=== PATIENT | male | born 1945 | race Caucasian/White ===

== ENCOUNTER 2024-05-22 08:56 | Outpatient (OUT) | payer MEDICARE, SELFPAY ==
--- NOTE | 2024-05-22 09:07 | ECG_ITS ---
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
--- NOTE | 2024-05-22 10:01 | PM.PRESUREVA ---
History of Present Illness History of Present Illness Chief complaint: LEFT INGUINAL HERNIA RPR Narrative: Patient presents for preadmission testing. The patient states he has an ongoing left inguinal hernia which he noticed an increase in frequency of bulging about 3 months ago. The patient states it does reduce on its own when he lays flat and he is not currently having any pain, bowel changes, nausea, vomiting, fever, or any other complaints. He previously had a repair of a right sided inguinal hernia. Review of Systems ROS Narrative REVIEW OF SYSTEMS: Negative except as stated in HPI, ten or more systems reviewed. Constitutional: No fever, chills, weakness ENT: No sore throat or epistaxis Cardiovascular: No edema, chest pain, palpitations, or activity intolerance Respiratory: No shortness of breath, cough, or wheezing Musculoskeletal: No joint pain or swelling Genitourinary: No dysuria or hematuria Neurological: No numbness, tingling, weakness, or headache Psychiatric: No mood changes PFSH PFSH Medical History (Updated 05/22/24 @ 09:28 by Ondina Bravo NP) Kidney stones ?N20.0 - Calculus of kidney (ICD-10) Heart murmur ?R01.1 - Cardiac murmur, unspecified (ICD-10) Vitamin D deficiency ?E55.9 - Vitamin D deficiency, unspecified (ICD-10) Mood disorder ?F39 - Unspecified mood [affective] disorder (ICD-10) Hypercholesterolemia ?E78.00 - Pure hypercholesterolemia, unspecified (ICD-10) Hyperlipidemia ?E78.5 - Hyperlipidemia, unspecified (ICD-10) Erectile dysfunction ?N52.9 - Male erectile dysfunction, unspecified (ICD-10) Diverticulosis ?K57.90 - Diverticulosis of intestine, part unspecified, without perforation or abscess without bleeding (ICD-10) GERD (gastroesophageal reflux disease) ?K21.9 - Gastro-esophageal reflux disease without esophagitis (ICD-10) BPH (benign prostatic hyperplasia) ?N40.0 - Benign prostatic hyperplasia without lower urinary tract symptoms (ICD-10) Aortic stenosis ?I35.0 - Nonrheumatic aortic (valve) stenosis (ICD-10) Allergic rhinitis ?J30.9 - Allergic rhinitis, unspecified (ICD-10) Left inguinal hernia ?K40.90 - Unilateral inguinal hernia, without obstruction or gangrene, not specified as recurrent (ICD-10) Surgical History (Updated 05/21/24 @ 13:55 by Ondina Bravo NP) H/O right inguinal hernia repair ?Z98.890 - Other specified postprocedural states (ICD-10) ?Z87.19 - Personal history of other diseases of the digestive system (ICD-10) History of esophagogastroduodenoscopy (EGD) ?Z98.890 - Other specified postprocedural states (ICD-10) H/O colonoscopy ?Z98.890 - Other specified postprocedural states (ICD-10) Family History (Updated 05/22/24 @ 09:28 by Ondina Bravo NP) Other Cancer Family history of breast cancer Family history of myocardial infarction Social History (Updated 05/22/24 @ 09:22 by Ondina Bravo NP) Within the past year, how often did you have a drink containing alcohol: 2-3 times a week Smoking status: Former smoker Non-prescribed substance use: denies use Previous occupational history: Retired [employer], [employer] Highest level of school completed/degree received: high school graduate Meds Home Medications and Allergies Home Medications ?Medication ?Instructions ?Recorded ?Confirmed ?Type alfuzosin 10 mg tablet,extended 10 mg PO DAILY 05/22/24 05/22/24 History release 24 hr ascorbic acid (vitamin C) 1,000 mg 1 g PO DAILY 05/22/24 05/22/24 History capsule aspirin 81 mg tablet,delayed 81 mg PO DAILY 05/22/24 05/22/24 History release (Adult Aspirin Regimen) atorvastatin 20 mg tablet 20 mg PO DAILY 05/22/24 05/22/24 History cholecalciferol (vitamin D3) 25 1,000 unit PO DAILY 05/22/24 05/22/24 History mcg (1,000 unit) capsule cimetidine 400 mg tablet 400 mg PO Q12H 05/22/24 05/22/24 History cyanocobalamin (vitamin B-12) 1,000 mcg PO DAILY 05/22/24 05/22/24 History 1,000 mcg capsule fexofenadine 180 mg tablet 180 mg PO DAILY 05/22/24 05/22/24 History multivitamin-ferrous 1 tab PO DAILY 05/22/24 05/22/24 History fumarate-folic acid 18 mg-400 mcg tablet (Centrum Complete) omeprazole 20 mg capsule,delayed 20 mg PO DAILY 05/22/24 05/22/24 History release tadalafil 20 mg tablet 20 mg PO DAILY PRN sexual activity 05/22/24 05/22/24 History tamsulosin 0.4 mg capsule (Flomax) 0.4 mg PO DAILY 05/22/24 05/22/24 History zinc gluconate 50 mg tablet 50 mg PO DAILY 05/22/24 05/22/24 History Allergies Allergy/AdvReac Type Severity Reaction Status Date / Time No Known Drug Allergies Allergy Verified 05/22/24 09:19 Exam Narrative Exam Narrative: Constitutional: Awake, alert, comfortable, well-appearing, nontoxic, interactive, vital signs as charted Head: Normocephalic, atraumatic Neck: Supple, normal appearance, normal range of motion, no meningeal signs, no lymphadenopathy Respiratory: No respiratory distress, breath sounds clear Cardiovascular: Regular rate and rhythm, strong and regular heart tones Abdomen: Nontender, normal bowel sounds, soft, no CVA tenderness, left inguinal hernia nontender Musculoskeletal: Normal gait, no swelling or edema Skin: No rashes or induration, no lesions, only visible skin inspected Neuro: No neurological deficits, normal sensation Psychiatric: Oriented ?3, normal affect Assessment and Plan Assessment and Plan (1) Left inguinal hernia: Plan Left inguinal hernia repair with mesh scheduled with Dr. Senior June 05, 2024.
== END 2024-05-22 08:57 | disposition home or self-care (01) ==
LOC: PST 09:04
PROVIDERS: PCP Internal Medicine; Visit Provider Surgery
DX: Z01.810 Encounter for preprocedural cardiovascular examination (principal); Z01.818 Encounter for other preprocedural examination; K40.90 Unilateral inguinal hernia, without obstruction or gangrene, not specified as recurrent
CPT/HCPCS: 93005; G0463

== ENCOUNTER 2024-07-02 14:12 | Outpatient (OUT) | payer MEDICARE, SELFPAY | END 2024-07-02 14:13 | disposition home or self-care (01) | LOC: PST 14:12 | PROVIDERS: PCP Internal Medicine; Visit Provider Surgery | DX: Z01.818 Encounter for other preprocedural examination (principal); K40.90 Unilateral inguinal hernia, without obstruction or gangrene, not specified as recurrent ==

== ENCOUNTER 2024-07-10 08:16 | Day surgery (SDC) | payer OTHER, SELFPAY ==
[2024-05-22 09:43] VITALS: BP 148/87; PULSE 69; TEMP 36.2; O2SAT 99; BMI 22.8
[2024-07-10] VITALS (10 sets, daily range): BP systolic 118–155; BP diastolic 70–92; PULSE 67–86; TEMP 36.6; O2SAT 89–100; BMI 21.3
--- NOTE | 2024-07-10 | OP_ITS ---
OPERATION DATE: 07/10/2024 PREOPERATIVE DIAGNOSIS: Left inguinal hernia. POSTOPERATIVE DIAGNOSIS: Indirect left inguinal hernia and cord lipoma. PROCEDURE: Left inguinal herniorrhaphy with Bard mesh patch insertion. SURGEON: Sylvester Senior M.D. ANESTHESIA: General with laryngeal mask airway as well as left sided TAP block. ESTIMATED BLOOD LOSS: Less than 10 mL. INDICATIONS AND CONSENT: Patient is a 78-year-old male with history of enlarging symptomatic left inguinal hernia. Indications, risks, benefits, alternatives of proceeding with herniorrhaphy with mesh insertion were explained extensively to the patient, including the risks of bleeding, infection, scarring, pain, recurrence, nerve injury, testicular injury, blood clot, pulmonary embolus, heart attack, anesthetic complications, need for further surgery or mesh removal. All of his questions were answered. Informed consent was obtained. PROCEDURE: Patient brought to the operating room, placed in the supine position. General anesthesia was induced. A left sided TAP block was then performed. Patient was prepped and draped in the usual sterile fashion. A left groin incision was made with the scalpel blade and carried down through subcutaneous tissue using sharp dissection as well as electrocautery. Anastasiya?s fascia was divided. The external oblique was opened along the direction of its fibers, down through the external inguinal ring. It was noted to be attenuated. Cord structures were mobilized and retracted with a [place] drain. There was noted to be an indirect sac as well as a cord lipoma. These were carefully dissected free, up to the internal ring. Cord lipoma was excised. The base was ligated with the 3-0 Vicryl suture. Hernia sac was opened. It was noted to be empty. High ligation was then performed with 3-0 Vicryl suture. It was then excised and sent off to Pathology. The wound was irrigated. There was no evidence of direct inguinal hernia. The Bard polypropylene mesh patch was then placed in the floor of the inguinal canal. Arms were placed around the cord structures. It was then secured circumferentially using interrupted 3-0 Vicryl sutures. Care was taken to avoid undo tension on the cord structures. Wound was irrigated with antibiotic saline. There was good hemostasis. The external oblique was closed with a running 3-0 Vicryl suture. The remaining Exparel solution was injected into the subcutaneous tissue. External oblique was closed with running 3-0 Vicryl suture. Anastasiya?s fascia was re-approximated with interrupted 3-0 Monocryl suture. The skin was then closed with a running 4-0 subcuticular Monocryl suture and skin glue. Sterile pressure dressing was applied. Sponge and needle counts were correct x3 per nursing personnel. Patient tolerated procedure well, was sent to recovery room in good condition. CC: Suraj Ordonez D.O. BERE
--- OUTSIDE RECORDS SUMMARY | 2024-07-10 08:22 | XMS_ITS | CCD ---
Author Organization [facility] Care Team Providers Care Preconstruction Manager Name Role Phone GADIEL SALAS V Admitting Unavailable GADIEL SALAS V Attending Unavailable GADIEL SALAS V Consulting Unavailable DANNY RAMOS Admitting Unavailable DANNY RAMOS Attending Unavailable DANNY RAMOS Primary Care Unavailable DANNY RAMOS Consulting Unavailable MARILEE CETNENO Consulting Unavailable DANNY RAMOS Primary Care Physician Danny Ramos DO Primary Care Provider [phone] DANNY RAMOS Attending Unavailable DANNY RAMOS Referring Unavailable DANNY RAMOS Primary Care Unavailable DANNY RAMOS Admitting Unavailable DANNY RAMOS Attending Unavailable DANNY RAMOS Primary Care Unavailable Emilie Fernandez Attending Provider DO Danny Ramos Primary Care Provider Emilie Fernandez Attending Unavailable Emilie Fernandez Admitting Unavailable Danny Ramos Primary Care Unavailable Raoul TRACY Attending Unavailable Sylvester FRAIRE Attending Unavailable Raoul TRACY Attending Unavailable DANNY RAMOS Attending Unavailable DANNY RAMOS Referring Unavailable DANNY RAMOS Primary Care Unavailable DANNY RAMOS Attending Unavailable DANNY RAMOS Referring Unavailable DANNY RAMOS Primary Care Unavailable DANNY RAMOS Attending Unavailable DANNY RAMOS Referring Unavailable DANNY RAMOS Primary Care Unavailable DANNY RAMOS Attending Unavailable DANNY RAMOS Referring Unavailable DANNY RAMOS Primary Care Unavailable Allergies Allergy Classification Reported Allergen(s) Allergy Type Date of Onset Reaction(s) Facility (1 source) No Known Medication Allergies; Translations: [No Known Medication Allergies] Propensity to adverse reactions (disorder) [facility] Repository Medications Current Medications Medication Drug Class(es) Dates Sig (Normalized) Sig (Original) 24 hr alfuzosin hydrochloride 10 mg extended release oral tablet (3 sources) alpha-Adrenergic Kris Start: 08-16-2023 take 1 tablet by mouth once daily alfuzosin 10 mg ER Tab 10 mg = 1 tab(s), Oral, Daily, # 30 tab(s), Refills(s) 11, Pharmacy: [id number], 177, cm, 08/16/23 14:18:00 EST, Height/Length Dosing, 72, kg, 08/16/23 14:18:00 EST, Weight Dosing Start Date: 08/16/23 Status: Ordered Start: 08-16-2023 take 1 tablet by alexis th every twenty-four hours alfuzosin (UROXATRAL) 10 mg 24 hr tablet Take 1 tablet (10 mg total) by mouth. 08/16/2023 Active aspirin 81 mg delayed release oral tablet (1 source) Platelet Aggregation Inhibitor, Nonsteroidal Anti-inflammatory Drug Start: 04-11-2024 take 1 tablet by mouth once daily aspirin 81 mg Oral EC Tab 81 mg = 1 tab(s), Oral, Daily, Refills(s) 0 Start Date: 04/11/24 Status: Ordered atorvastatin 20 mg oral tablet (5 sources) HMG-CoA Reductase Inhibitor Start: 05-20-2021 take 1 tablet by mouth once daily atorvastatin 20 mg Tab 20 mg = 1 tab(s), Oral, Daily, Refills(s) 0 Start Date: 04/24/24 Status: Ordered cimetidine 400 mg oral tablet (1 source) Histamine-2 Receptor Antagonist Start: 05-02-2024 take 1 tablet by mouth in the morning, then take 1 tablet by mouth at bedtime cimetidine (TAGAMET) 400 mg tablet Indications: Contact dermatitis, unspecified contact dermatitis type, unspecified trigger Take 1 tablet (400 mg total) by mouth in the morning and 1 tablet (400 mg total) before bedtime. 30 tablet 05/02/2024 Active fexofenadine hydrochloride 180 mg oral tablet (5 sources) Histamine-1 Receptor Antagonist Start: 05-20-2021 take 1 tablet by mouth once daily fexofenadine 180 mg Tab 180 mg = 1 tab(s), Oral, Daily, Refills(s) 0 Start Date: 05/20/21 Status: Ordered Multi-Day Plus Minerals oral tablet (3 sources) Start: 05-20-2021 take 1 tablet by mouth once daily Multi-Day Plus Minerals oral tablet 1 tab(s), Oral, Daily, Refill(s) 0 Start Date: 05/20/21 Status: Ordered multivitamin with minerals (DAILY MULTIVITAMIN-MINERA LS) tablet (2 sources) take 1 tablet by mouth once daily in the morning multivitamin with minerals (DAILY MULTIVITAMIN-MINE RALS) tablet Take 1 tablet by mouth in the morning. Active take 1 tablet by alexis once daily in the morning multivitamin with minerals (DAILY MULTIVITAMIN-MINERALS) tablet Take 1 tablet by mouth in the morning. 0 Active omeprazole 20 mg delayed release oral capsule (5 sources) Proton Pump Inhibitor Start: 05-12-2023 take 1 capsule by mouth every other day omeprazole (PriLOSEC) 20 mg capsule Take 1 capsule (20 mg total) by mouth every other day. 05/12/2023 Active Start: 05-20-2021 take 1 capsule by mo [facility] once daily omeprazole 20 mg Cap-DR 20 mg = 1 cap(s), Oral, Daily, # 30 cap(s), Refills(s) 0 Start Date: 05/20/21 Status: Ordered polyethylene glycol 3350 85599 mg powder for oral solution (1 source) Osmotic Laxative Start: 01-03-2024 polyethylene glycol (GLYCOLAX) 17 gram/dose powder Indications: Diverticulosis large intestine w/o perforation or abscess w/o bleeding Take 17 g by mouth in the morning. 01/03/2024 Active predniSONE 20 mg oral tablet (1 source) Start: 05-02-2024 End: 05-07-2024 take 1 tablet by mouth in the morning predniSONE (DELTASONE) 20 mg tablet Indications: Contact dermatitis, unspecified contact dermatitis type, unspecified trigger Take 1 tablet (20 mg total) by mouth in the morning for 5 days. 5 tablet 05/02/2024 05/07/2024 Active psyllium 400 mg oral capsule (1 source) Start: 01-03-2024 psyllium husk (MetamuciL) 0.4 gram capsule Indications: Diverticulosis large intestine w/o perforation or abscess w/o bleeding Take 1 capsule (0.4 g total) by mouth in the morning. 01/03/2024 Active tadalafil 20 mg oral tablet (3 sources) Phosphodiesterase 5 Inhibitor Start: 04-11-2024 take 1 tablet by mouth once daily as needed tadalafil 20 mg Tab 20 mg = 1 tab(s), Oral, Daily, PRN as needed, Refills(s) 0 Start Date: 04/11/24 Status: Ordered take 1 tablet by alexis th once daily as needed tadalafiL (CIALIS) 10 MG tablet Take 1 tablet (10 mg total) by mouth daily as needed for erectile dysfunction. Active tamsulosin hydrochloride 0.4 mg oral capsule (1 source) alpha-Adrenergic Kris Start: 04-24-2024 take 1 capsule by mouth once daily tamsulosin 0.4 mg Cap 0.4 mg = 1 cap(s), Oral, Daily, Refills(s) 0 Start Date: 04/24/24 Status: Ordered vitamin b12 0.1 mg oral tablet (2 sources) Vitamin B12 take 1 tablet by mouth in the morning cyanocobalamin (VITAMIN B-12) 100 MCG tablet Take 1 tablet (100 mcg total) by mouth in the morning. Active Vitamin B12 100 mcg oral tablet (3 sources) Start: 05-20-2021 take 1 tablet by mouth once daily Vitamin B12 100 mcg oral tablet 100 mcg = 1 tab(s), Oral, Daily, Refills(s) 0 Start Date: 05/20/21 Status: Ordered Vitamin C 250 mg oral tablet (1 source) Start: 05-20-2021 take 1 tablet by mouth once daily Vitamin C 250 mg oral tablet 250 mg = 1 tab(s), Oral, Daily, Refills(s) 0 Start Date: 05/20/21 Status: Ordered Vitamin D3 2000 intl units oral Tab (3 sources) Start: 05-20-2021 take 1 tablet by mouth once daily Vitamin D3 2000 intl units oral Tab 50 mcg, Oral, Daily, tab(s), Refills(s) 0 Start Date: 05/20/21 Status: Ordered Zinc (2 sources) Start: 05-20-2021 take 140 mg by mouth once daily Zinc 140 mg, Oral, Daily, Refills(s) 0 Start Date: 05/20/21 Status: Ordered Problems Active Problems Problem Classification Problem Date Documented Date Episodic/Chronic Abdominal hernia (3 sources) Inguinal hernia; Translations: [Unilateral inguinal hernia, without obstruction or gangrene, not specified as recurrent] Onset: 03-18-2024 Episodic Abdominal pain (2 sources) Left lower quadrant pain; Translations: [Abdominal pain] Onset: 10-25-2023 Episodic Allergic reactions (2 sources) Unspecified contact dermatitis, unspecified cause; Translations: [Contact dermatitis] Onset: 05-02-2024 05-02-2024 Episodic Disorders of lipid metabolism (5 sources) Hyperlipidemia; Translations: [Hyperlipidemia, unspecified] Onset: 10-12-2022 05-20-2021 Chronic Diverticulosis and diverticulitis (4 sources) Diverticulosis of large intestine without perforation or abscess without bleeding; Translations: [Diverticular disease] Onset: 09-06-2023 04-11-2024 Chronic Esophageal disorders (5 sources) Gastroesophageal reflux disease; Translations: [Gastro-esophageal reflux disease without esophagitis] Onset: 10-12-2022 05-20-2021 Chronic Heart valve disorders (4 sources) Aortic stenosis, non-rheumatic ; Translations: [Nonrheumatic aortic (valve) stenosis] Onset: 05-02-2024 08-09-2023 Chronic Hyperplasia of prostate (10 sources) Benign prostatic hypertrophy with outflow obstruction; Translations: [Benign prostatic hyperplasia with lower urinary tract symptoms] Onset: 05-23-2022 Chronic Mood disorders (1 source) Mood disorder 04-11-2024 Chronic Nutritional deficiencies (1 source) Vitamin D deficiency 04-11-2024 Chronic Other and unspecified benign neoplasm (1 source) Personal history of colonic polyps Onset: 09-06-2023 Episodic Other lower respiratory disease (4 sources) Cough; Translations: [COUGH] Onset: 03-16-2020 Episodic Other lower respiratory disease (1 source) Cough; Translations: [Subacute cough] 08-09-2023 Episodic Other male genital disorders (4 sources) Male erectile dysfunction, unspecified; Translations: [Erectile dysfunction] Onset: 08-16-2023 Chronic Other screening for suspected conditions (not mental disorders or infectious disease) (1 source) Encounter for screening for malignant neoplasm of prostate; Translations: [Screening for malignant neoplasm done] Onset: 08-16-2023 Episodic Other upper respiratory disease (3 sources) Allergic rhinitis; Translations: [Allergic rhinitis, unspecified] 08-17-2017 Chronic Residual codes; unclassified (2 sources) Family history of cancer; Translations: [Family history of malignant neoplasm of prostate] Onset: 05-23-2022 Episodic Residual codes; unclassified (3 sources) Family history of prostate cancer 05-20-2021 Episodic Screening and history of mental health and substance abuse codes (2 sources) Ex-tobacco user; Translations: [Personal history of nicotine dependence] 08-17-2017 Episodic Unclassified (2 sources) Patient encounter status 08-16-2023 Unclassified (2 sources) Subacute cough; Translations: [Subacute cough] Onset: 08-09-2023 Unclassified (1 source) Rash Onset: 05-02-2024 Unclassified (1 source) pain in groin area Onset: 01-03-2024 Past or Other Problems Problem Classification Problem Date Documented Da te Episodic/Chronic Mood disorders (2 sources) Mood disorders Onset: 08-09-2023 Resolved: 05-02-2024 08-09-2023 Other and unspecified benign neoplasm (2 sources) History of polyp of colon; Translations: [Personal history of colonic polyps] Onset: 08-10-2023 08-09-2023 Episodic Other and unspecified benign neoplasm (2 sources) Personal history of colonic polyps; Translations: [Personal history of colonic polyps] Onset: 08-09-2023 Episodic Results Test Name Value Interpretation Reference Range Facility Blood Urea Nitrogenon 2023 Urea nitrogen [Mass/Vol] 20 mg/dL Normal 7-25 [facility] Comment on above: Order Comment: STAT FOR CT Performed By: #### C DEBBI CLOEMAN #### [address] abdomen pelvis w conon CT abdomen pelvis w con [facility] [place] [address] CT Scan Report Signed Patient: Richy Martinez MR#: [id number] 5 : 1945 Acct:[id number] Age/Sex: 77 / M ADM Date: 10/25/23 Loc: CT Room: Type: [facility] Attending Dr: Emilie Fernandez Copies to: Emilie Fernandez Ordering Provider: Emilie Fernandez Date of Service: 10/25/23 CT/CT abdomen pelvis w con: R10.32 CT ABDOMEN AND PELVIS WITH INTRAVENOUS CONTRAST: CLINICAL HISTORY: Left lower quadrant pain off and on for 2 months. COMPARISON: None TECHNIQUE: Spiral images were obtained through the abdomen and pelvis following the administration of intravenous contrast. This CT exam was performed using one or more following dose reduction techniques: Automated exposure control, adjustment of the mA and/or kV according to patient size, or use of iterative reconstruction technique. FINDINGS: Lung Bases: [Mild lung scarring.] Organs:Liver gallbladder portal vein spleen pancreas and adrenal glands appear unremarkable. Cyst right kidney. Left kidney appears unremarkable. Abdominal aorta appears normal in caliber.[ GI: Stomach is grossly unremarkable. Small bowel appears nondilated. Colonic diverticulosis.[Appendi x is normal. Pelvis:[Urinary bladder is grossly unremarkable. Prostatomegaly.] Peritoneum/Retroperiton eum:No free air, free fluid or lymphadenopathy.[ Abd wall/Bones:Abdominal wall demonstrates no acute findings. Osseous structures demonstrate degenerative change. CT/CT abdomen pelvis w con IMPRESSION: No acute process. Colonic diverticulosis. No CT evidence of diverticulitis. Prostatomegaly. Impression dictated by: Zachary Ghosh Jr., Vanna10/25/2023 9:06 AM Dictation Location: [place] [address] Transcribed By: [facility] 10/25/23905 Dictated By: Zachary Ghosh Jr, DO 10/25/23903 Signed By: 10/25/23905 [facility] Creatinineon 10-25-2023 Creatinine [Mass/Vol] 1.29 mg/dL Normal 0.70-1.30 [facility] Comment on above: Order Comment: STAT FOR CT Performed By: #### C VIRGINIA BUN #### [address] GFR/1.73 sq M.predicted MDRD (S/P/Bld) [Vol rate/Area] 57.108 mL/min/{1.73_m2} [facility] Comment on above: Order Comment: STAT FOR CT Result Comment: PERF ORMED BY: [place] [address] PATHOLOGIST ACUTE CARE REGISTERED NURSE BALWINDER JHA M.D. Performed By: #### C REAT, BUN #### [facility] [address] [id number] [facility] Creatinine [Mass/volume] in Serum or PlasmaOrdered By: Danny Ramos on 10-25-2023 Creatinine [Mass/Vol] 1.29 mg/dL 0.70-1.30 [facility] No Panel InformationOrdered By: Danny Ramos on 10-25-2023 Estimated GFR (CKD-EPI) 57.108 mL/Min [facility] Creatinine Clearance (Chem N/A [facility] Urea nitrogen [Mass/volume] in Serum or PlasmaOrdered By: Danny Ramos on 10-25-2023 Urea nitrogen [Mass/Vol] 20 mg/dL 02-21 [facility] Screenson 08-17-2023 Screens [id number] IFF [facility] Ambulatory Visit Summaryon 0 08-16-2023 Ambulatory Visit Summary PHANIRICHY Ramirez Fredi :1945 Visit Date:08/16/2023 Ambulatory Visit Instructions Your Diagnosis BPH with urinary obstruction Family history of prostate cancer Prostate cancer screening ED (erectile dysfunction) Tests Performed Urnls Dip Stick Auto w/o Microscopy POC 27984 Your Care Team Attending Physician - Raoul TRACY MD Primary Care Physician - DANNY RAMOS DO This Is Your Medications List alfuzosin (alfuzosin 10 mg ER Tab) Contact prescribing physician if questions or concerns atorvastatin (atorvastatin 20 mg Tab) cholecalciferol (Vitamin D3 2000 intl units oral Tab) cyanocobalamin (Vitamin B12 100 mcg oral tablet) fexofenadine (fexofenadine 180 mg Tab) multivitamin with minerals (Multi-Day Plus Minerals oral tablet) omeprazole (omeprazole 20 mg Cap-DR) zinc sulfate (Zinc) Procedures Performed History of hernia repair (2018). Discharge Vitals Heart Rate (Peripheral) 67 Respiratory Rate 16 Blood Pressure 129/80 Height 177 cm Height 70 in Weight 72 kg Weight 158.4 lb BMI 22.98 What to do next Scheduled Follow-Up Appointments Monday 9:45 AM EST With: Raoul TRACY MD Where: [facility] Patient Educationon 08-16-19 Patient Education Urology Benign Prostatic Hyperplasia Benign prostatic hyperplasia (BPH) is an enlarged prostate gland that is caused by the normal aging process. The prostate may get bigger as a man gets older. The condition is not caused by cancer. The prostate is a walnut-sized gland that is involved in the production of semen. It is located in front of the rectum and below the bladder. The bladder stores urine. The urethra carries stored urine out of the body. An enlarged prostate can press on the urethra. This can make it harder to pass urine. The buildup of urine in the bladder can cause infection. Back pressure and infection may progress to bladder damage and kidney (renal) failure. What are the causes? This condition is part of the normal aging process. However, not all men develop problems from this condition. If the prostate enlarges away from the urethra, urine flow will not be blocked. If it enlarges toward the urethra and compresses it, there will be problems passing urine. What increases the risk? This condition is more likely to develop in men older than 50 years. What are the signs or symptoms? Symptoms of this condition include: ? Getting up often during the night to urinate. ? Needing to urinate frequently during the day. ? Difficulty starting urine flow. ? Decrease in size and strength of your urine stream. ? Leaking (dribbling) after urinating. ? Inability to pass urine. This needs immediate treatment. ? Inability to completely empty your bladder. ? Pain when you pass urine. This is more common if there is also an infection. ? Urinary tract infection (UTI). How is this diagnosed? This condition is diagnosed based on your medical history, a physical exam, and your symptoms. Tests will also be done, such as: ? A post-void bladder scan. This measures any amount of urine that may remain in your bladder after you finish urinating. ? A digital rectal exam. In a rectal exam, your health care provider checks your prostate by putting a lubricated, gloved finger into your rectum to feel the back of your prostate gland. This exam detects the size of your gland and any abnormal lumps or growths. ? An exam of your urine (urinalysis). ? A prostate specific antigen (PSA) screening. This is a blood test used to screen for prostate cancer. ? An ultrasound. This test uses sound waves to electronically produce a picture of your prostate gland. Your health care provider may refer you to a specialist in kidney and prostate diseases (urologist). How is this treated? Once symptoms begin, your health care provider will monitor your condition (active surveillance or watchful waiting). Treatment for this condition will depend on the severity of your condition. Treatment may include: ? Observation and yearly exams. This may be the only treatment needed if your condition and symptoms are mild. ? Medicines to relieve your symptoms, including: ? Medicines to shrink the prostate. ? Medicines to relax the muscle of the prostate. ? Surgery in severe cases. Surgery may include: ? Prostatectomy. In this procedure, the prostate tissue is removed completely through an open incision or with a laparoscope or robotics. ? Transurethral resection of the prostate (TURP). In this procedure, a tool is inserted through the opening at the tip of the penis (urethra). It is used to cut away tissue of the inner core of the prostate. The pieces are removed through the same opening of the penis. This removes the blockage. ? Transurethral incision (TUIP). In this procedure, small cuts are made in the prostate. This lessens the prostate's pressure on the urethra. ? Transurethral microwave thermotherapy (TUMT). This procedure uses microwaves to create heat. The heat destroys and removes a small amount of prostate tissue. ? Transurethral needle ablation (TUNA). This procedure uses radio frequencies to destroy and remove a small amount of prostate tissue. ? Interstitial laser coagulation (ILC). This procedure uses a laser to destroy and remove a small amount of prostate tissue. ? Transurethral electrovaporization (TUVP). This procedure uses electrodes to destroy and remove a small amount of prostate tissue. ? Prostatic urethral lift. This procedure inserts an implant to push the lobes of the prostate away from the urethra. Follow these instructions at home: ? Take [id number] and prescription medicines only as told by your health care provider. ? Monitor your symptoms for any changes. Contact your health care provider with any changes. ? Avoid drinking large amounts of liquid before going to bed or out in public. ? Avoid or reduce how much caffeine or alcohol you drink. ? Give yourself time when you urinate. ? Keep all follow-up visits. This is important. Contact a health care provider if: ? You have unexplained back pain. ? Your symptoms do not get better with treatment. ? You develop side effects from the medicine (more content not included)... Normal [facility] Urology Office/Clinic Noteon 08-16-2023 Urology Office/Clinic Note Chief Complaint BPH with urinary obstruction HPI Staff RWR pt. 1 year follow up w/PSA. previous PSA 1.74-01/21/22 and most current done 08/17/2022 is 1.84. Previous DX: BPH w/ urinary obstruction, family history of prostate cancer. Dysuria: no Incomplete bladder emptying: no Hematuria: no Frequency: no Urgency: no Nocturia: 0-1x Stream: weaker with a little straining Leaking: no Post void dripping: no Wearing pads/ Depends: no Urge incontinence: no Stress incontinence: no Incontinence without Sensory Awareness: no Abdominal pain: lower left groin but states that his PCP feels it is the start of an inguinal hernia Flank pain: no Sexual complaints: no History of Present Illness Tests reviewed: reviewed UA and PSA. I have reviewed the previous health record information and history for this patient from . I have reviewed and verified the staff HPI to be accurate for this encounter. There have been no associated fever, chills, flank pain, or blood in the urine. Denies any urinary infections since last encounter. Review of Systems PHQ Score Initial Depression Screen Score: 0 SCORE ROS - Provider Constitutional: denies weight loss, denies hot flashes. Eyes: denies eye problems. Gastrointestinal: denies nausea, denies vomiting. Cardiovascular: denies chest pain or angina. Integumentary: no dryness Musculoskeletal: denies musculoskeletal symptoms. ENMT: denies otolaryngeal symptoms. Respiratory: no shortness of breath. Heme/Lymph: denies easy bleeding tendency, denies easy bruising tendency. Psychiatric: no confusion, no anxiety. Genitourinary: See HPI. Physical Exam Vitals & Measurements HR: 67(Peripheral) RR: 16 BP: 129/80 HT: 70 in HT: 177 cm WT: 72 kg WT: 158.4 lb BMI: 22.98 General Appearance: alert, no distress, well nourished, well developed male. Genitourinary: normal scrotum, normal testes, normal urethra, normal epididymis, normal vas deferens/spermatic cord. Flank Pain: none. Bladder: nonpalpable. Prostate: normal prostate, estimated weight 35 gms, no hard nodule observed. Assessment/Plan 1. 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 Discussed starting a med to help improve his urinary sxs. Pt states that he would like to start a med to help with his urination. -Will start Alfuzosin 10mg QD ER. Discussed the medication side effects, and the patient will monitor closely for these, as well as for symptom improvement. If severe side effects occur, the medication should be stopped and the office notified. 2. Family history of prostate cancer (Z80.42: Family history of malignant neoplasm of prostate) Brother 3. Prostate cancer screening (Z12.5: Encounter for screening for malignant neoplasm of prostate) Previous PSA was 1.74 on 01/21/22 and most current done on 08/17/2022 was 1.84. ROBY: 35gms, benign Pt PSA is stable, and within normal range. Will continue to monitor in a year with repeat PSA. Follow up in 1 yr w/PSA. All questions/concerns were discussed. Pt to call the office if he encounters any issues prior. Pt acknowledges understanding. -Will order PSA. 4. ED (erectile dysfunction) (N52.9: Male erectile dysfunction, unspecified) Pt states that he takes Cialis 20mg, may be taking the full dose, or maybe 10mg tabs, is not sure, and his erections are not as good as he would like. Advised pt to try increasing the dose to the full 20mg if he is not already taking the full 20mg. Counseled pt on the possible causes of ED. Follow-up With When Contact Information DANIA DIAMOND, Raoul Ramirez, [place] In 1 year [facility] [address], [place] [address]- Additional Instructions: w/PSA Patient Education Benign Prostatic Hyperplasia I, Diandra Bashir , personally scribed for Dr. Tracy on 08/16/2023 15:22:29. . Documentation recorded by the scribe, Diandra Bashir, accurately reflects the services(s) I performed and decisions made by me. Problem List/Past Medical History Ongoing BPH with urinary obstruction BPH without urinary obstruction Chronic GERD ED (erectile dysfunction) Family history of prostate cancer Hyperlipidemia Prostate cancer screening Historical No qualifying data Procedure/Surgical History History of hernia repair (2018). Medications atorvastatin 20 mg Tab, 20 mg= 1 tab(s), Oral, Daily fexofenadine 180 mg Tab, 180 mg= 1 tab(s), Oral, Daily Multi-Day Plus Minerals oral tablet, 1 tab(s), Oral, Daily omeprazole 20 mg Cap-DR, 20 mg= 1 cap(s), Oral, Daily Vitamin B12 100 mcg oral tablet, 100 mcg= 1 tab(s), Oral, Daily Vitamin D3 2000 intl units oral Tab, 50 mcg, Oral, Daily Zinc, 140 mg, Oral, Daily Allergies No Known Medication Allergies Social Histo (more content not included)... Normal [facility] Comment on above: Result Comment: Elec tronically Signed By: Raoul TRACY MD\.br\Date and Time Signed: 08/16/23 15:23 EST\.br\Electronically Co-Signed By: Diandra Bashir\.br\Date and Time Co-Signed: 08/16/23 15:22 EST XR CHEST 2 VWSon 08-16-2023 XR CHEST 2 VWS XR CHEST 2 VWS PA and lateral chest: HISTORY: Cough. 2 views of the chest are obtained. Cardiac and mediastinal contours are within normal limits. Lungs are clear. There is no pleural effusion, pneumothorax, or vascular congestion. Osseous structures appear intact. IMPRESSION: No acute findings. Finalized by Jose Reddy MD on 08/16/2023 11:33 AM Normal [facility] XR CHEST 2 Von 03-17-2020 XR CHEST 2 V EXAM: XR CHEST 2 V HISTORY: Cough COMPARISON: Chest x-ray of 09/19/2012. TECHNIQUE: 2 views of the chest are submitted for review. FINDINGS: The lungs appear clear. No dense focal consolidation, pneumothorax or significant pleural effusion is seen. The visualized osseous structures appear unremarkable. IMPRESSION: No radiographic evidence for acute cardiopulmonary disease. Electronically authenticated by: MARILEE CENTENO Date: 2020-03-17 01:56 Normal [facility] Vital Signs Date Time Vital Sign Value Performing Clinician Facility 05-02-2024 17:00-0400 Body height 175.3 cm Danny Ramos DO Work Phone: [facility] 05-02-2024 17:00-0400 Body mass index (BMI) [Ratio] 22.86 kg/m2 Danny Ramos DO Work Phone: [facility] 05-02-2024 17:00-0400 Body temperature 97.81 [degF] Danny Ramos DO Work Phone: [facility] 05-02-2024 17:00-0400 Body weight 70.22 kg Danny Ramos DO Work Phone: [facility] 05-02-2024 17:00-0400 Diastolic blood pressure 82 mm[Hg] Danny Ramos DO Work Phone: [facility] 05-02-2024 17:00-0400 Heart rate 82 /min Danny Ramos DO Work Phone: [facility] 05-02-2024 17:00-0400 SaO2% (BldA) [Mass fraction] 95 % Danny Ramos DO Work Phone: [facility] 05-02-2024 17:00-0400 Systolic blood pressure 140 mm[Hg] Danny Ramos DO Work Phone: [facility] 04-24-2024 13:16-0400 Blood Pressure Location Sylvester FRAIRE [facility] 04-24-2024 13:16-0400 Diastolic blood pressure 76 mm[Hg] Sylvester FRAIRE [facility] 04-24-2024 13:16-0400 Heart rate 72 /min Sylvester FRAIRE [facility] 04-24-2024 13:16-0400 Respiratory rate 16 /min Sylvester FRAIRE [facility] 04-24-2024 13:16-0400 Systolic blood pressure 134 mm[Hg] Sylvester FRAIRE [facility] 08-16-2023 13:49-0500 Blood Pressure Location Raoul TRACY [facility] 08-16-2023 13:49-0500 Diastolic blood pressure 80 mm[Hg] Raoul TRACY [facility] 08-16-2023 13:49-0500 Heart rate 67 /min Raoul TRACY [facility] 08-16-2023 13:49-0500 Respiratory rate 16 /min Raoul TRACY [facility] 08-16-2023 13:49-0500 Systolic blood pressure 129 mm[Hg] Raoul TRACY [facility] 08-09-2023 14:56-0500 Body height 177.8 cm [facility] 08-09-2023 14:56-0500 Body mass index (BMI) [Ratio] 22.7 kg/m2 Danny Ramos DO Work Phone: [facility] 08-09-2023 14:56-0500 Body temperature 97.81 [degF] Danny Ramos DO Work Phone: [facility] [employer] [facility] 08-09-2023 14:56-0500 Body weight 71.76 kg Danny Ramos DO Work Phone: [facility] [employer] [facility] 08-09-2023 14:56-0500 Diastolic blood pressure 58 mm[Hg] Danny Ramos DO Work Phone: [facility] 08-09-2023 14:56-0500 Heart rate 97 /min Danny [facility] 08-09-2023 14:56-0500 SaO2% (BldA) [Mass fraction] 98 % Danny Ramos DO Work Phone: [facility] [employer] [facility] 08-09-2023 14:56-0500 Systolic blood pressure 130 mm[Hg] Danny Ramos DO Work Phone: [facility] 05-23-2022 08:20-0400 Blood Pressure Location [employer] [facility] 05-23-2022 08:20-0400 Diastolic blood pressure 84 mm[Hg] Prabhakar [employer] [facility] 05-23-2022 08:20-0400 Heart rate 77 /min Prabhakar [employer] [facility] 05-23-2022 08:20-0400 Systolic blood pressure 150 mm[Hg] Prabhakar [employer] [facility] Encounters Encounter Date Encounter Type Care Provider Facility Start: 08-14-2024 ambulatory Raoul Burch ty:[facility] Start: 05-02-2024 End: 05-02-2024 Office outpatient visit 15 minutes Danny Winchester Vilmageetha Work Phone: [facility] Comment on above: Contact dermatitis, unspecified contact dermatitis type, unspecified trigger (Primary Dx); Nonrheumatic aortic valve stenosis Start: 05-02-2024 End: 05-02-2024 ambulatory [facility] Start: 04-24-2024 ambulatory Sylvester FRAIRE Facility :[facility] Start: 04-24-2024 End: 04-24-2024 Patient encounter procedure Sylvester FRAIRE [facility] Start: 04-04-2024 ambulatory Raoul TRACY Facility :[facility] Start: 03-18-2024 End: 03-18-2024 ambulatory [facility] Start: 01-03-2024 End: 01-03-2024 ambulatory [facility] Start: 10-25-2023 End: 10-25-2023 ambulatory DO Danny Ramos Work Phone: [facility] Work Phone: Start: 10-25-2023 End: 10-25-2023 Patient encounter procedure DO Danny Ramos Work Phone: [facility] Work Phone: Start: 09-06-2023 End: 09-06-2023 Evaluation and management of inpatient [facility] Start: 08-16-2023 End: 08-16-2023 ambulatory Raoul Ashley DANIA Facility:[facility] [place] Start: 08-16-2023 End: 08-16-2023 Patient encounter procedure Raoul Ashley DANIA [facility] Start: 08-16-2023 End: 08-17-2023 ambulatory [facility] Start: 08-09-2023 End: 08-09-2023 ambulatory [facility] Start: 08-09-2023 End: 08-09-2023 Office outpatient visit 25 minutes Danny Ramos DO Work Phone: [facility] Comment on above: Subacute cough (Prim julia Dx); History of colon polyps; Nonrheumatic aortic valve stenosis Start: 05-23-2022 End: 05-23-2022 Patient encounter procedure Prabhakar ZEE [facility] [place] Start: 03-16-2020 End: 03-17-2020 Patient encounter procedure DANNY RAMOS Facility:[facility] Start: 07-03-2019 End: 10-12-2019 Patient encounter procedure GADIEL SALAS Facility:[facility] Procedures Date Procedure Procedure Detail Performing Clinician Start: 05-02-2024 Adult depression screening assessment Danny Ramos DO Work Phone: Start: 10-25-2023 Computed tomography of abdomen and pelvis with contrast DO Danny Ramos Work Phone: Start: 08-31-2023 Colonoscopy Sylvester FRAIRE Start: 08-09-2023 Adult depression screening assessment Danny Ramos DO Work Phone: Start: 07-31-2017 History of hernia repair Prabhakar ZEE Esophagogastroduodenoscopy Fredi FRAIRE Comment on above: with removal of food bolus Repair of right inguinal hernia Sylvester FRAIRE Plan of Treatment Date Care Activity Detail Author Start: 05-02-2025 Adult BMI Screening Adult BMI Screen ing [facility] Start: 05-02-2025 Depression Screening Depression Scre ing [facility] [employer] [facility] Start: 05-02-2025 Fall Risk Screening Fall Risk Screen ing [facility] [employer] [facility] Start: 05-02-2025 Tobacco Screening Tobacco Screening [facility] Start: 08-09-2024 Adult BMI Screening [facility] Start: 08-09-2024 Depression Screening [facility] Start: 08-09-2024 Fall Risk Screening Fall Risk Screen ing [facility] Start: 08-09-2024 Tobacco Screening [facility] Start: 07-12-2024 Medicare Annual Well ness Visit Medicare Annual Wellness Visit [facility] [employer] [facility] Start: 03-31-2024 COVID-19 Vaccine ( season) COVID-19 Vaccine () [facility] [employer] [facility] Start: 03-31-2024 Influenza vaccination Influenza Vacc in[facility] Start: 08-23-2023 End: 08-23-2023 Admission to same day surgery center 08/23/2023 11:15 AM EST - 08/23/2023 12:00 PM EST Surgery [facility] [address] [place] [address] Danny Ramos, DO [address] [place] [address] COLONOSCOPY DIAGNOSTIC / SCREENING [59695 (CPT )] [facility] Comment on above: COLONOSCOPY DIAGNOST IC / SCREENING [00784 (CPT )] Start: 08-23-2023 End: 08-23-2023 Colonoscopy flx dx w/collj spec when pfrmd COLONOSCOPY DIAGNOSTIC / SCREENING Screen for colon cancer 08/23/2023 11:15 AM EST [facility] Start: 08-23-2023 Subsequent hospital visit by physician 08/23/2023 11:15 AM EST Hospital Encounter [facility] [address] [place] [address] [phone] Danny Ramos, DO [address] [place] [address] [facility] Start: 08-22-2023 End: 08-22-2023 ambulatory 08/22/2023 2:00 PM EST Support Visit [facility] - Pre Admit [address] [place] [address] [facility] - Pre Admit Start: 08-09-2023 End: 08-09-2024 XR Chest PA and Lateral X-ray chest 2 views Imaging Routine Subacute cough Expected: 08/09/2023, Expires: 08/09/2024 JACQUELINE METZ Work Phone: Comment on above: Expected: 08/09/2023 , Expires: 08/09/2024 Start: 03-31-2023 COVID-19 Vaccine ( season) COVID-19 Vaccine ( season) [facility] [employer] [facility] Start: 2010 Abdominal aortic aneurysm screening Abdominal Aortic Aneurysm (AAA) Screen [facility] Start: 10-30-1995 Administration of varicella zoster vaccine Zoster (Shingles) Vaccine (1 of 2) [facility] Start: 1964 DTaP,Tdap and Td Vaccines (1 - Tdap) DTaP,Tdap and Td Vaccines (1 - Tdap) [facility] End: 08-09-2024 Colonoscopy Colonoscopy GI Routine History of colon polyps 1 Occurrences starting 08/09/2023 until 08/09/2024 [facility] Comment on above: 1 Occurrences starti ng 08/09/2023 until 08/09/2024 End: 08-09-2024 Pulmonary function test Complete PFT w/ BD (Spirometry (Flow Volume Loop) pre/post short acting bronchodilator w/ DLCO (diffusion study) and Lung Volume) Pulmonary function test Complete PFT w/ BD (Spirometry (Flow Volume Loop) pre/post short acting bronchodilator w/ DLCO (diffusion study) and Lung Volume) PFT Routine Subacute cough 1 Occurrences starting 08/09/2023 until 08/09/2024 [facility] Comment on above: 1 Occurrences starti ng 08/09/2023 until 08/09/2024 Immunizations Immunization Date Immunization Notes Care Provider Lucy langston 05-24-2023 influenza virus vacc ine, unspecified formulation [employer] [facility] 05-24-2023 Influenza, High-dose , Quadrivalent Danny Ramos DO Work Phone: [facility] Work Phone: 05-24-2023 RSV, bivalent, prote in subunit RSVpreF, diluent reconstituted, 0.5 mL, PF Danny Ramos DO Work Phone: [facility] 05-29-2022 influenza virus vacc ine, unspecified formulation [employer] [facility] 05-29-2022 Influenza, High-dose , Quadrivalent Danny Ramos DO [facility] 05-03-2021 influenza virus vacc ine, unspecified formulation Raoul TRACY [facility] 05-03-2021 Influenza, High-dose , Quadrivalent Danny Ramos DO Work Phone: [facility] [employer] [facility] 05-03-2021 SARS-CoV-2 (COVID-19 ) mRNA BNT-162b2 vax Raoul TRACY [facility] 04-30-2021 influenza virus vacc ine, unspecified formulation Prabhakar ZEE [facility] 09-21-2020 SARS-CoV-2 (COVID-19 ) mRNA BNT-162b2 vax Raoul TRACY [facility] Comment on above: Result Comment: 2023: [id number] 08-31-2020 SARS-CoV-2 (COVID-19 ) mRNA BNT-162b2 vax Raoul [employer] [facility] Comment on above: Result Comment: 2023: [id number] 08-20-2016 influenza virus vacc ine, unspecified formulation Danny Ramos DO Work Phone: [facility] [employer] [facility] 08-20-2016 Influenza, High-dose , Quadrivalent Danny Ramos DO [facility] 08-20-2016 influenza, unspecifi ed formulation Raoul TRACY [facility] 07-31-2016 pneumococcal conjuga te vaccine, 13 valent Danny José Luis DO [facility] 07-31-2016 pneumococcal polysaccharide vaccine, 23 valent Danny José Luis DO Work Phone: [facility] Payers Date Payer Category Payer Unknown [id number] 2023 Medicare ANTH MEDICARE [facility] MEDIC[facility] ADVANTAGE [id number] 2023-Present [phone] [address] [place] [address] [id number] 2023 Medicare [id number] 2023 Medicare [id number] 2022 Unknown [employer]IC[employer] ADVANTAGE [id number] 2022-Present [phone] [address] [place] [address] [id number] 2022 Medicare [id number] 1959 Medicare [id number] 1959 Private Health Insurance [facility] [id number] 1959 Self-pay 1945 Unknown [id number]. [id number] 1945 Unknown [id number]. [id number] 1945 Unknown [id number] [id number]. 2.1286 1945 Unknown [id number] [id number]. 2.1286 1945 Unknown [id number] [id number]. 2.727 1945 Unknown [id number] [id number]. 2.727 1945 Unknown [id number] [id number]. 2.727 1945 Unknown [id number] [id number]. 2.1286 1945 Unknown [id number] [id number]. 2.1286 1945 Unknown [id number] [id number]. 2.1286 1945 Unknown [id number] [id number]. 2.1286 Medicare Medicare Outpatient [id number] Unknown [id number]. [id number] Social History Date Type Detail Facility Start: 05-23-2022 End: 10-12-2022 Tobacco smoking status Ex-smoker (finding) [facility] Start: 09-10-2020 End: 08-09-2023 Sex Assigned At Male [facility] History of tobacco use Current smoker [facility] History of tobacco use Cigarette Smoker [facility] Start: 10-12-2022 Tobacco use and exposure Smokeless tobacco non-user [facility] Start: 08-09-2023 End: 05-02-2024 Alcohol intake Current drinker of alcohol (finding) [facility] Start: 09-10-2020 End: 08-09-2023 History of Social function [facility] Adolescent depressio n screening assessment 0 [facility] Start: 08-17-2017 Alcohol Comment OCCASIONALLY [facility] Start: 1945 Sex Assigned At Not on file P [facility] Start: 1945 Sex Assigned At Male F [facility] Functional Status Date Assessment Result Facility 04-24-2024 Functional Status N/A [facility] 08-16-2023 Functional Status N/A [facility] 05-23-2022 Functional Status N/A [facility] Clinical Notes 05-23-2022 to 05-02-2024 Danny Ramos, DO - 05/02/2024 4:30 PM EDTMonicaana Ramos, DO - 08/09/2023 2:40 PM EST Note Date & Type Note Facility 05-02-2024 History of Present illness Narrative IM PROGRESS NOTE Patient - Richy Martinez Age - 78 [facility] 1945 [id number] ASSESSMENT & PLAN 1. Contact dermatitis, unspecified contact dermatitis type, unspecified trigger -most likely a contact dermatitis to unspecified agent. -will work on symptom relief initially. Patient advised to take cool showers 2 to 3 times a day. Avoid any further use of topical agents which may be causing secondary rash or break out. -continue Kaylee 180 mg daily. Add Tagamet for more complete histamine blocking -add prednisone 20 mg daily - cimetidine (TAGAMET) 400 mg tablet; Take 1 tablet (400 mg total) by mouth in the morning and 1 tablet (400 mg total) before bedtime. Dispense: 30 tablet; Refill: 0 - predniSONE (DELTASONE) 20 mg tablet; Take 1 tablet (20 mg total) by mouth in the morning for 5 days. Dispense: 5 tablet; Refill: 0 -if above interventions do not improve symptoms and reduce the rash, we need to get a punch biopsy. 2. Nonrheumatic aortic valve stenosis -clinically the same -is due for repeat echocardiogram. Patient wants to schedule later this year. Subjective 78-year-old male presents for same-day appointment because of a rash. Rash started approximately 4 days ago. Noticed it incidentally while he was at a friend's house, and noticed severe itching and red spots on his upper inner arms. Rubbed it down with alcohol and went home. The next day, when he woke up, he noticed that the red spots and itching had spread over his trunk, and over the subsequent several days has now spread further on his arms and upper legs. -he is unsure of any new contacts that he may or may not have been. Has been out golfing and in some tall weeds. -has not done any traveling. -no new pets or soaps. -intermittently is had rashes like this but never this severe. -has tried taking OTC steroid cream, calamine lotion, and Benadryl with no sustained relief. In fact the rash has persisted and worsened. -other than being more diffuse, he has not developed any blisters or open areas. A review of systems was negative He describes no systemic symptoms other than pruritus.. Exam BP 140/82 (BP Site: Left Arm, BP Postition: Sitting) Pulse 82 Temp 36.6 C (97.8 F) (Tympanic) Ht 175.3 cm (5' 9 ) Wt 70.2 kg (154 lb 12.8 oz) SpO2 95% BMI 22.86 kg/m Physical Exam Vitals reviewed. Constitutional: General: He is not in acute distress. Appearance: He is normal weight. He is not toxic-appearing. HENT: Head: Normocephalic. Right Ear: External ear normal. Left Ear: External ear normal. Nose: Congestion present. Mouth/Throat: Mouth: Mucous membranes are moist. Pharynx: No oropharyngeal exudate or posterior oropharyngeal erythema. Eyes: General: No scleral icterus. Cardiovascular: Rate and Rhythm: Normal rate. Heart sounds: Murmur (3/6 systolic murmur left lower sternal border and apex) heard. Pulmonary: Effort: Pulmonary effort is normal. Breath sounds: No wheezing or rales. Musculoskeletal: Right lower leg: No edema. Left lower leg: No edema. Lymphadenopathy: Cervical: No cervical adenopathy. Skin: General: Skin is warm and dry. Findings: Rash (Diffuse macular, papular rash involving both arms, anterior and posterior trunk and abdomen, and bilateral legs proximal to the knees. No blisters or draining areas. Some of the lesions are scaled) present. Neurological: General: No focal deficit present. Mental Status: He is alert and oriented to person, place, and time. Motor: No weakness. Coordination: Coordination normal. Psychiatric: Mood and Affect: Mood normal. Behavior: Behavior normal. Meds Current Outpatient Medications: alfuzosin (UROXATRAL) 10 mg 24 hr tablet, Take 1 tablet (10 mg total) by mouth., Disp: , Rfl: atorvastatin (LIPITOR) 20 mg tablet, atorvastatin 20 mg tablet TAKE 1 TABLET BY MOUTH EVERY DAY, Disp: , Rfl: cyanocobalamin (VITAMIN B-12) 100 MCG tablet, Take 1 tablet (100 mcg total) by mouth in the morning., Disp: , Rfl: fexofenadine (KAYLEE) 180 mg tablet, Take 1 tablet (180 mg total) by mouth in the morning. Indications: seasonal runny nose., Disp: , Rfl: multivitamin with minerals (DAILY MULTIVITAMIN-MINERALS) tablet, Take 1 tablet by mouth in the morning., Disp: , Rfl: omeprazole (PriLOSEC) 20 mg capsule, Take 1 capsule (20 mg total) by mouth every other day., Disp: , Rfl: polyethylene glycol (GLYCOLAX) 17 gram/dose powder, Take 17 g by mouth in the morning., Disp: , Rfl: psyllium husk (MetamuciL) 0.4 gram capsule, Take 1 capsule (0.4 g total) by mouth in the morning., Disp: , Rfl: tadalafiL (CIALIS) 10 MG tablet, Take 1 tablet (10 mg total) by mouth daily as needed for erectile dysfunction., Disp: , Rfl: cimetidine (TAGAMET) 400 mg tablet, Take 1 tablet (400 mg total) by mouth in the morning and 1 tablet (400 mg total) before bedtime., Disp: 30 tablet, Rfl: 0 predniSONE (DELTASONE) 20 mg tablet, Take 1 tablet (20 mg total) by mouth in the morning for 5 days., Disp: 5 tablet, Rfl: 0 Lab Results No visits with results within 1 Month(s) from this visit. Latest known visit with results is: Hospital Outpatient Visit on 06/28/2023 Component Date Value Ref Range Status LVOT stroke volume 06/28/2023 22.85 ml Final LV Diastolic Volume 06/28/2023 105.00 mL Final LV Systolic Volume 06/28/2023 45.50 mL Final EF 06/28/2023 57 % Final FS 06/28/2023 30 28 - 44 % Final LVIDd 06/28/2023 4.30 4.39 - 6.10 cm Final LVIDs 06/28/2023 3.00 2.60 - 3.93 cm Final IVS 06/28/2023 1.00 0.6 - 1.1 cm Final PW 06/28/2023 0.80 0.6 - 1.1 cm Final LVOT diameter 06/28/2023 1.20 cm Final TDI 06/28/2023 5.44 cm/s Final MV TDI E' (medial) 06/28/2023 5.98 cm/s Final LA Volume Index 06/28/2023 24.3 mL/m2 Final E/A ratio 06/28/2023 0.73 Final E wave deceleration time 06/28/2023 254.00 msec Final MV Peak E Robert 06/28/2023 50.10 cm/s Final MV Peak A Robert 06/28/2023 68.60 cm/s Final LA size 06/28/2023 3.40 cm Final Aortic root 06/28/2023 3.60 cm Final LA volume 06/28/2023 44.90 cm3 Final RV diastolic dimension (basal) 06/28/2023 39.0 mm Final TAPSE 06/28/2023 1.75 cm Final AV peak robert 06/28/2023 351.00 cm/s Final LVOT peak robert 06/28/2023 0.97 m/s Final AV VTI 06/28/2023 77.50 cm Final LVOT peak VTI 06/28/2023 20.20 cm Final AV mean gradient 06/28/2023 30.00 mmHg Final AV peak gradient 06/28/2023 49.00 mmHg Final AV valve area 06/28/2023 0.32 cm2 Final Valve area - Index 06/28/2023 0.2 Final MV pressure 1/2 time 06/28/2023 74.00 ms Final MV valve area p 1/2 method 06/28/2023 2.97 cm2 Final TR Peak Robert 06/28/2023 2.3 m/s Final TR peak gradient 06/28/2023 22.00 mmHg Final LV ESV A2C 06/28/2023 47.40 mL Final LV ESV A4C 06/28/2023 40.70 mL Final LV RWT 2D 06/28/2023 37.21 Final Echo EF Estimated 06/28/2023 57 % Final AV Velocity Ratio 06/28/2023 0.27 Final Left Ventricle Mass 06/28/2023 123.447563712560049 g Final Interventricular Septum Diastolic * 06/28/2023 10 cm Final EF - 3D Echo 06/28/2023 58 % Final RVID d 06/28/2023 3.9 cm Final TASV 06/28/2023 10.4 cm/s Final RA 2D Volume 06/28/2023 20.2 mL/m2 Final Est. RA pressure 06/28/2023 3 mmHg Final RA area 06/28/2023 14.5 cm2 Final RV Peak Systolic Pressure 06/28/2023 25 mmHg Final Energy loss index 06/28/2023 0.18 Final ZLVIDS 06/28/2023 -0.49 Final ZLVIDD 06/28/2023 -1.85 Final Other Testing No results found. Danny Ramos DO., [facility] Office: [phone] documented in this encounter [facility] 08-16-2023 Hospital Discharge instructions Patient Education 08/16/2023 15:21:38 Benign Prostatic Hyperplasia Benign Prostatic Hyperplasia Benign prostatic hyperplasia (BPH) is an enlarged prostate gland that is caused by the normal aging process. The prostate may get bigger as a man gets older. The condition is not caused by cancer. The prostate is a walnut-sized gland that is involved in the production of semen. It is located in front of the rectum and below the bladder. The bladder stores urine. The urethra carries stored urine out of the body. An enlarged prostate can press on the urethra. This can make it harder to pass urine. The buildup of urine in the bladder can cause infection. Back pressure and infection may progress to bladder damage and kidney (renal) failure. What are the causes? This condition is part of the normal aging process. However, not all men develop problems from this condition. If the prostate enlarges away from the urethra, urine flow will not be blocked. If it enlarges toward the urethra and compresses it, there will be problems passing urine. What increases the risk? This condition is more likely to develop in men older than 50 years. What are the signs or symptoms? Symptoms of this condition include: Getting up often during the night to urinate. Needing to urinate frequently during the day. Difficulty starting urine flow. Decrease in size and strength of your urine stream. Leaking (dribbling) after urinating. Inability to pass urine. This needs immediate treatment. Inability to completely empty your bladder. Pain when you pass urine. This is more common if there is also an infection. Urinary tract infection (UTI). How is this diagnosed? This condition is diagnosed based on your medical history, a physical exam, and your symptoms. Tests will also be done, such as: A post-void bladder scan. This measures any amount of urine that may remain in your bladder after you finish urinating. A digital rectal exam. In a rectal exam, your health care provider checks your prostate by putting a lubricated, gloved finger into your rectum to feel the back of your prostate gland. This exam detects the size of your gland and any abnormal lumps or growths. An exam of your urine (urinalysis). A prostate specific antigen (PSA) screening. This is a blood test used to screen for prostate cancer. An ultrasound. This test uses sound waves to electronically produce a picture of your prostate gland. Your health care provider may refer you to a specialist in kidney and prostate diseases (urologist). How is this treated? Once symptoms begin, your health care provider will monitor your condition (active surveillance or watchful waiting). Treatment for this condition will depend on the severity of your condition. Treatment may include: Observation and yearly exams. This may be the only treatment needed if your condition and symptoms are mild. Medicines to relieve your symptoms, including: ?Medicines to shrink the prostate. ?Medicines to relax the muscle of the prostate. Surgery in severe cases. Surgery may include: ?Prostatectomy. In this procedure, the prostate tissue is removed completely through an open incision or with a laparoscope or robotics. ?Transurethral resection of the prostate (TURP). In this procedure, a tool is inserted through the opening at the tip of the penis (urethra). It is used to cut away tissue of the inner core of the prostate. The pieces are removed through the same opening of the penis. This removes the blockage. ?Transurethral incision (TUIP). In this procedure, small cuts are made in the prostate. This lessens the prostate's pressure on the urethra. ?Transurethral microwave thermotherapy (TUMT). This procedure uses microwaves to create heat. The heat destroys and removes a small amount of prostate tissue. ?Transurethral needle ablation (TUNA). This procedure uses radio frequencies to destroy and remove a small amount of prostate tissue. ?Interstitial laser coagulation (ILC). This procedure uses a laser to destroy and remove a small amount of prostate tissue. ?Transurethral electrovaporization (TUVP). This procedure uses electrodes to destroy and remove a small amount of prostate tissue. ?Prostatic urethral lift. This procedure inserts an implant to push the lobes of the prostate away from the urethra. Follow these instructions at home: Take mkoi-fvm-dlyoulp and prescription medicines only as told by your health care provider. Monitor your symptoms for any changes. Contact your health care provider with any changes. Avoid drinking large amounts of liquid before going to bed or out in public. Avoid or reduce how much caffeine or alcohol you drink. Give yourself time when you urinate. Keep all follow-up visits. This is important. Contact a health care provider if: You have unexplained back pain. Your symptoms do not get better with treatment. You develop side effects from the medicine you are taking. Your urine becomes very dark or has a bad smell. Your lower abdomen becomes distended and you have trouble passing urine. Get help right away if: You have a fever or chills. You suddenly cannot urinate. You feel light-headed or very dizzy, or you faint. There are large amounts of blood or clots in your urine. Your urinary problems become hard to manage. You develop moderate to severe low back or flank pain. The flank is the side of your body between the ribs and the hip. These symptoms may be an emergency. Get help right away. Call 911. Do not wait to see if the symptoms will go away. Do not drive yourself to the hospital. Summary Benign prostatic hyperplasia (BPH) is an enlarged prostate that is caused by the normal aging process. It is not caused by cancer. An enlarged prostate can press on the urethra. This can make it hard to pass urine. This condition is more likely to develop in men older than 50 years. Get help right away if you suddenly cannot urinate. This information is not intended to replace advice given to you by your health care provider. Make sure you discuss any questions you have with your health care provider. Document Revised: 02/02/2022 Document Reviewed: 02/02/2022 [employer] Patient Education 2022 [employer]. Follow Up Care 05/23/2022 09:02:43 With:DANIA DIAMOND, Raoul Ramirez, URL Address: [facility] [address], [place] [address]- When:Within 1 Year(s) Comments:w/EDILSON [facility] 08-09-2023 History of Present illness Narrative Images from the original note were not included. IM PROGRESS NOTE Patient - Richy Martinez Age - 77 y.o. - 1945 ASSESSMENT & PLAN 1. Subacute cough -several etiologies possible including allergic postnasal drainage, underlying asthma or COPD, and uncontrolled esophageal reflux. -currently on omeprazole 20 mg every other day, and follows anti reflux precautions. Should continue this the same. -start Neti flush daily. Sample bottle and instructions in use were given to the patient. -check chest x-ray to evaluate for structural/intrinsic problems. -needs PFT. - X-ray chest 2 views; Future 2. History of colon polyps -needs recheck colonoscopy -continue daily stool softener - Colonoscopy; Future 3. Nonrheumatic aortic valve stenosis -reviewed the results of recent echocardiogram with the patient. -by calculated valve area and pressure gradient has severe aortic stenosis -however patient is asymptomatic able to complete all ADLs without any limitations -I discussed patient options for further evaluation. He was offered referral to Cardiology for possible catheterization. He deferred this today. We decided to recheck the echocardiogram in several months, to reconfirm the current values, and monitor his symptoms. -he was advised if symptoms such as shortness of breath, dyspnea, swelling or syncope starter occur, he should let me know immediately. Subjective 77-year-old male presents for several medical conditions today, as well as to review recent testing results. -his main concern today is a cough which has been present for 4-5 weeks. Dry and nonproductive. Occurs day and night but does not wake him from sleep. Occasionally some sputum production. Has not responded to Kaylee. No fevers. No hemoptysis. He has had some episodes like this every 1-2 years. He did have a chest x-ray through the emergency department about 18 months ago which did show hyperinflation. He does have a remote history of cigarette smoking. -he has been having some discomfort in his left lower quadrant and inguinal area. Occasionally sharp stabbing lasting about 1-2 seconds, but otherwise has a crampy, aching sensation in the left lower quadrant. feels like something is draining . Bowels have been intermittently constipated and loose. He does take a stool softener on a regular basis which has lessened the variation. He does have a history of colon polyps about 5 years ago, has not had a recheck. He has not noticed any blood. -lastly, he had an echocardiogram in late May 2023 because of worsened heart murmur. The patient still walks several miles a day, and during nice weather complete 18 holes of golf without any shortness of breath or dyspnea. He denies any orthopnea. He denies any chest pain or heaviness. However, the echocardiogram showed a calculated aortic valve area of 0.3 cm2, with a peak pressure gradient of 49 mmHg and a mean pressure gradient of 30 mmHg. A review of systems was ENT: nasal congestion and postnasal drainage Allergies: postnasal drip and seasonal allergies Respiratory: cough Cardiovascular: Abnormal echocardiogram which is asymptomatic Gastrointestinal: change in bowel habits Genito-Urinary: nocturia. Exam BP 130/58 (BP Site: Left Arm, BP Postition: Sitting) Pulse 97 Temp 36.6 C (97.8 F) (Oral) Ht 177.8 cm (5' 10 ) Wt 71.8 kg (158 lb 3.2 oz) SpO2 98% BMI 22.70 kg/m Physical Exam Vitals reviewed. Constitutional: General: He is not in acute distress. Appearance: He is well-developed. He is not toxic-appearing. HENT: Head: Normocephalic. Right Ear: Tympanic membrane, ear canal and external ear normal. Left Ear: Tympanic membrane, ear canal and external ear normal. Ears: Comments: Mild hearing loss bilaterally Nose: Congestion and rhinorrhea present. Mouth/Throat: Mouth: Mucous membranes are moist. Eyes: General: No scleral icterus. Neck: Vascular: No carotid bruit. Cardiovascular: Rate and Rhythm: Normal rate and regular rhythm. Heart sounds: Murmur (4/6 holosystolic murmur 2 RIS and apex) heard. No gallop. Comments: See orthostatic blood pressures Pulmonary: Effort: Pulmonary effort is normal. Breath sounds: No wheezing or rales. Abdominal: General: There is no distension. Palpations: Abdomen is soft. There is no mass. Tenderness: There is no abdominal tenderness. There is no guarding or rebound. Hernia: A hernia (Minimal left inguinal hernia with Valsalva or cough) is present. Hernia is present in the left inguinal area. Genitourinary: Musculoskeletal: General: Normal range of motion. Right lower leg: No edema. Left lower leg: No edema. Skin: General: Skin is warm and dry. Coloration: Skin is not jaundiced. Findings: No bruising. Neurological: Mental Status: He is alert and oriented to person, place, and time. Motor: No weakness. Coordination: Coordination normal. Deep Tendon Reflexes: Reflexes are normal and symmetric. Psychiatric: Mood and Affect: Mood normal. Behavior: Behavior normal. Meds Current Outpatient Medications: atorvastatin (LIPITOR) 20 mg tablet, atorvastatin 20 mg tablet TAKE 1 TABLET BY MOUTH EVERY DAY, Disp: , Rfl: cyanocobalamin (VITAMIN B-12) 100 MCG tablet, Take 1 tablet (100 mcg total) by mouth in the morning., Disp: , Rfl: fexofenadine (KAYLEE) 180 mg tablet, Take 1 tablet (180 mg total) by mouth in the morning. Indications: seasonal runny nose., Disp: , Rfl: multivitamin with minerals (DAILY MULTIVITAMIN-MINERALS) tablet, Take 1 tablet by mouth in the morning., Disp: , Rfl: omeprazole (PriLOSEC) 20 mg capsule, Take 1 capsule (20 mg total) by mouth every other day., Disp: , Rfl: tadalafiL (CIALIS) 10 MG tablet, Take 1 tablet (10 mg total) by mouth daily as needed for erectile dysfunction., Disp: , Rfl: Lab Results No visits with results within 1 Month(s) from this visit. Latest known visit with results is: Hospital Outpatient Visit on 06/28/2023 Component Date Value Ref Range Status LVOT stroke volume 06/28/2023 22.85 ml Final LV Diastolic Volume 06/28/2023 105.00 mL Final LV Systolic Volume 06/28/2023 45.50 mL Final EF 06/28/2023 57 % Final FS 06/28/2023 30 28 - 44 % Final LVIDd 06/28/2023 4.30 4.39 - 6.10 cm Final LVIDs 06/28/2023 3.00 2.60 - 3.93 cm Final IVS 06/28/2023 1.00 0.6 - 1.1 cm Final PW 06/28/2023 0.80 0.6 - 1.1 cm Final LVOT diameter 06/28/2023 1.20 cm Final TDI 06/28/2023 5.44 cm/s Final MV TDI E' (medial) 06/28/2023 5.98 cm/s Final LA Volume Index 06/28/2023 24.3 mL/m2 Final E/A ratio 06/28/2023 0.73 Final E wave deceleration time 06/28/2023 254.00 msec Final MV Peak E Robert 06/28/2023 50.10 cm/s Final MV Peak A Robert 06/28/2023 68.60 cm/s Final LA size 06/28/2023 3.40 cm Final Aortic root 06/28/2023 3.60 cm Final LA volume 06/28/2023 44.90 cm3 Final RV diastolic dimension (basal) 06/28/2023 39.0 mm Final TAPSE 06/28/2023 1.75 cm Final AV peak robert 06/28/2023 351.00 cm/s Final LVOT peak robert 06/28/2023 0.97 m/s Final AV VTI 06/28/2023 77.50 cm Final LVOT peak VTI 06/28/2023 20.20 cm Final AV mean gradient 06/28/2023 30.00 mmHg Final AV peak gradient 06/28/2023 49.00 mmHg Final AV valve area 06/28/2023 0.32 cm2 Final Valve area - Index 06/28/2023 0.2 Final MV pressure 1/2 time 06/28/2023 74.00 ms Final MV valve area p 1/2 method 06/28/2023 2.97 cm2 Final TR Peak Robert 06/28/2023 2.3 m/s Final TR peak gradient 06/28/2023 22.00 mmHg Final LV ESV A2C 06/28/2023 47.40 mL Final LV ESV A4C 06/28/2023 40.70 mL Final LV RWT 2D 06/28/2023 37.21 Final Echo EF Estimated 06/28/2023 57 % Final AV Velocity Ratio 06/28/2023 0.27 Final Left Ventricle Mass 06/28/2023 123.855689162113899 g Final Interventricular Septum Diastolic * 06/28/2023 10 cm Final EF - 3D Echo 06/28/2023 58 % Final RVID d 06/28/2023 3.9 cm Final TASV 06/28/2023 10.4 cm/s Final RA 2D Volume 06/28/2023 20.2 mL/m2 Final Est. RA pressure 06/28/2023 3 mmHg Final RA area 06/28/2023 14.5 cm2 Final RV Peak Systolic Pressure 06/28/2023 25 mmHg Final Energy loss index 06/28/2023 0.18 Final ZLVIDS 06/28/2023 -0.49 Final ZLVIDD 06/28/2023 -1.85 Final Other Testing No results found. Danny Ramos DO., [facility] Office: [phone] documented in this encounter [facility] 05-23-2022 Hospital Discharge instructions Patient Education 05/23/2022 08:44:42 Benign Prostatic Hyperplasia Benign Prostatic Hyperplasia Benign prostatic hyperplasia (BPH) is an enlarged prostate gland that is caused by the normal aging process and not by cancer. The prostate is a walnut-sized gland that is involved in the production of semen. It is located in front of the rectum and below the bladder. The bladder stores urine and the urethra is the tube that carries the urine out of the body. The prostate may get bigger as a man gets older. An enlarged prostate can press on the urethra. This can make it harder to pass urine. The build-up of urine in the bladder can cause infection. Back pressure and infection may progress to bladder damage and kidney (renal) failure. What are the causes? This condition is part of a normal aging process. However, not all men develop problems from this condition. If the prostate enlarges away from the urethra, urine flow will not be blocked. If it enlarges toward the urethra and compresses it, there will be problems passing urine. What increases the risk? This condition is more likely to develop in men over the age of 50 years. What are the signs or symptoms? Symptoms of this condition include: Getting up often during the night to urinate. Needing to urinate frequently during the day. Difficulty starting urine flow. Decrease in size and strength of your urine stream. Leaking (dribbling) after urinating. Inability to pass urine. This needs immediate treatment. Inability to completely empty your bladder. Pain when you pass urine. This is more common if there is also an infection. Urinary tract infection (UTI). How is this diagnosed? This condition is diagnosed based on your medical history, a physical exam, and your symptoms. Tests will also be done, such as: A post-void bladder scan. This measures any amount of urine that may remain in your bladder after you finish urinating. A digital rectal exam. In a rectal exam, your health care provider checks your prostate by putting a lubricated, gloved finger into your rectum to feel the back of your prostate gland. This exam detects the size of your gland and any abnormal lumps or growths. An exam of your urine (urinalysis). A prostate specific antigen (PSA) screening. This is a blood test used to screen for prostate cancer. An ultrasound. This test uses sound waves to electronically produce a picture of your prostate gland. Your health care provider may refer you to a specialist in kidney and prostate diseases (urologist). How is this treated? Once symptoms begin, your health care provider will monitor your condition (active surveillance or watchful waiting). Treatment for this condition will depend on the severity of your condition. Treatment may include: Observation and yearly exams. This may be the only treatment needed if your condition and symptoms are mild. Medicines to relieve your symptoms, including: ?Medicines to shrink the prostate. ?Medicines to relax the muscle of the prostate. Surgery in severe cases. Surgery may include: ?Prostatectomy. In this procedure, the prostate tissue is removed completely through an open incision or with a laparoscope or robotics. ?Transurethral resection of the prostate (TURP). In this procedure, a tool is inserted through the opening at the tip of the penis (urethra). It is used to cut away tissue of the inner core of the prostate. The pieces are removed through the same opening of the penis. This removes the blockage. ?Transurethral incision (TUIP). In this procedure, small cuts are made in the prostate. This lessens the prostate's pressure on the urethra. ?Transurethral microwave thermotherapy (TUMT). This procedure uses microwaves to create heat. The heat destroys and removes a small amount of prostate tissue. ?Transurethral needle ablation (TUNA). This procedure uses radio frequencies to destroy and remove a small amount of prostate tissue. ?Interstitial laser coagulation (ILC). This procedure uses a laser to destroy and remove a small amount of prostate tissue. ?Transurethral electrovaporization (TUVP). This procedure uses electrodes to destroy and remove a small amount of prostate tissue. ?Prostatic urethral lift. This procedure inserts an implant to push the lobes of the prostate away from the urethra. Follow these instructions at home: Take [id number] and prescription medicines only as told by your health care provider. Monitor your symptoms for any changes. Contact your health care provider with any changes. Avoid drinking large amounts of liquid before going to bed or out in public. Avoid or reduce how much caffeine or alcohol you drink. Give yourself time when you urinate. Keep all follow-up visits as told by your health care provider. This is important. Contact a health care provider if: You have unexplained back pain. Your symptoms do not get better with treatment. You develop side effects from the medicine you are taking. Your urine becomes very dark or has a bad smell. Your lower abdomen becomes distended and you have trouble passing your urine. Get help right away if: You have a fever or chills. You suddenly cannot urinate. You feel lightheaded, or very dizzy, or you faint. There are large amounts of blood or clots in the urine. Your urinary problems become hard to manage. You develop moderate to severe low back or flank pain. The flank is the side of your body between the ribs and the hip. These symptoms may represent a serious problem that is an emergency. Do not wait to see if the symptoms will go away. Get medical help right away. Call your local emergency services (911 in the [place] Do not drive yourself to the hospital. Summary Benign prostatic hyperplasia (BPH) is an enlarged prostate that is caused by the normal aging process and not by cancer. An enlarged prostate can press on the urethra. This can make it hard to pass urine. This condition is part of a normal aging process and is more likely to develop in men over the age of 50 years. Get help right away if you suddenly cannot urinate. This information is not intended to replace advice given to you by your health care provider. Make sure you discuss any questions you have with your health care provider. Document Released: 07/17/2006 Document Revised: 06/11/2019 Document Reviewed: 08/21/2017 [employer] Patient Education 2020 [employer]. Follow Up Care 05/20/2021 09:58:45 With:Prabhakar ZEE MD, URL Address: [address] [place] [address]- When:1 year Comments:w/ EDILSON [facility] Evaluation + Plan note Future Appointments Appointment Date:05/29/2023 08:15:00 AM Scheduled Provider:Prabhakar ZEE MD Location:[facility] Appointment Type:URO Office Visit Diagnostic Tests PendingPSA Total 05/23/22 [facility] Evaluation + Plan note Future Appointments Appointment Date:08/14/2024 09:45:00 AM Scheduled Provider:Raoul TRACY MD Location:[facility] Appointment Type:URO Office Visit Diagnostic Tests PendingPSA Total 08/16/23 [facility] Evaluation + Plan note Future Appointments Appointment Date:08/14/2024 09:45:00 AM Scheduled Provider:Raoul TRACY MD Location:[facility] Appointment Type:URO Office Visit [facility] General Surgery [place] Evaluation note Diagnosis Subacute cough- Primary History of colon polyps Nonrheumatic aortic valve stenosis Screen for colon cancer Special screening for malignant neoplasms, colon [facility] Work Phone: Evaluation note* Diagnosis Contact dermatitis, unspecified contact dermatitis type, unspecified trigger- Primary Nonrheumatic aortic valve stenosis [facility] Narrative No data available for this section [facility] Discharge instructions No data available for this section [place] [facility] [place] InstructionsNot on filedocumented in this encounter [facility] SystemInstructions* Attachments The following attachments cannot be sent through Care Everywhere. * Contact dermatitis (Icelandic) [facility] SystemProgress note No data available for this section [facility] Summary Purpose Family History No Family History Records Found No data available for this section No Family History Records FoundNo Family History Records FoundNo Family History Records Found No data available for this section No Family History Records Found Advance Directives Advance Directive Response Recorded Date/ Time Advance Directives No October 22 024 12:38pm Chief Complaint and Reason for Visit Chief Complaint r10.32 Additional Source Comments (unrecognized sect ion and content) No Status Records FoundNo Status Records FoundNo Status Records FoundNo Status Records FoundNo Status Records Found INFORMATION SOURCE (unrecogn ized section and content) DATE CREATED AUTHOR 03/22/2020 [facility] DATE CREATED AUTHOR AUTHOR'S ORGANIZ ATION 09/11/2023 [facility] DATE CREATED AUTHOR AUTHOR'S ORGANIZ ATION 11/02/2023 [facility] DATE CREATED AUTHOR AUTHOR'S ORGANIZ ATION 04/23/2024 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 Relationship Specialty Start Date End Date Danny Ramos DO [address] [place] [address] PCP - General Internal Medicine 10/12/22 Team Status: Active Member Role Status Dates Danny Ramos DO Primary Care Provider Active Team Status: Inactive Member Role Status Dates Abed Jim Attending Provider Active Start: [facility] 2023 End: October 25, 2023 Danny Ramos DO Primary Care Provider Active Sta rt: October 25, 2023 End: October 25, 2023 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 This clinical summary was aggregated from multiple sources. Caution should be exercised in using it in the provision of clinical care. This summary normalizes information from multiple sources, and as a consequence, information in this document may materially change the coding, format and clinical context of patient data. In addition, data may be omitted in some cases. CLINICAL DECISIONS SHOULD BE BASED ON THE PRIMARY CLINICAL RECORDS. [employer] provides no warranty or guarantee of the accuracy or completeness of information in this document.
[2024-07-10] MEDS: LACTATED RINGER'S SOLUTION 1,000 ML 50 ML IV (08:54)
[2024-07-10] MEDS: CEFAZOLIN SODIUM 1 GM/50 ML D5W PREMIX IV (11:08)
[2024-07-10] MEDS: BUPIVACAINE LIPOSOME/PF 266 MG/13.3 ML VIAL 13.3 MG INJ (11:40)
[2024-07-10] MEDS: BUPIVACAINE HCL 0.25% PF 25 MG/10 ML VIAL INJ (11:40)
[2024-07-10] MEDS: 0.9 % SODIUM CHLORIDE 10 ML VIAL INJ (11:40)
[2024-07-10] MEDS: LACTATED RINGER'S SOLUTION 1,000 ML 1000 ML IV (11:47)
[2024-07-10] MEDS: 0.9 % SODIUM CHLORIDE 10 ML VIAL 5 ML INJ (11:52)
[2024-07-10] MEDS: CEFAZOLIN SODIUM 1,000 MG in 0.9 % SODIUM CHLORIDE 10 ML 3 MG IRR (11:53)
== END 2024-07-10 14:08 | disposition home or self-care (01) ==
PROVIDERS: PCP Internal Medicine; Visit Provider Surgery
PROC: (CPT 830; principal; 2024-07-10 09:35)
DX: K40.90 Unilateral inguinal hernia, without obstruction or gangrene, not specified as recurrent (principal); Z87.891 Personal history of nicotine dependence; K21.9 Gastro-esophageal reflux disease without esophagitis; E78.5 Hyperlipidemia, unspecified; N40.0 Benign prostatic hyperplasia without lower urinary tract symptoms; I35.0 Nonrheumatic aortic (valve) stenosis
CPT/HCPCS: 49505; 55520; 88304; C1781; J0131; J0665; J0690; J1100; J2250; J2371; J2405; J2704; J3010

== ENCOUNTER 2024-11-06 10:52 | Outpatient (OUT) | payer OTHER, SELFPAY ==
--- NOTE | 2024-11-06 10:58 | ECG_ITS ---
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
[2024-11-06 11:49] LABS: Basophils Absolute Auto 0.1 10^3/uL (0.0-0.1); Basophils Percent Auto 0.9 % (0.2-2.0); Eosinophils Absolute Auto 0.3 10^3/uL (0.0-0.7); Eosinophils Percent Auto 5.4 % (0.9-7.0); Hematocrit 38.3 % (42.0-54.0); Hemoglobin 12.9 g/dL (14.0-18.0); Immature Granulocytes Abs Auto 0.01 10^3/uL (0.00-0.03); Immature Granulocytes Pct Auto 0.2 % (0.0-0.5); Lymphocytes Absolute Auto 2.2 10^3/uL (1.2-3.8); Lymphocytes Percent Auto 38.1 % (20.5-60.0); Mean Corpuscular HGB Conc 33.7 g/dL (29.9-35.2); Mean Corpuscular Hemoglobin 31.5 pg (25.9-34.0); Mean Corpuscular Volume 93.6 fL (80.0-94.0); Mean Platelet Volume 9.5 fL (9.5-13.5); Monocytes Absolute Auto 0.6 10^3/uL (0.3-0.8); Monocytes Percent Auto 10.4 % (1.7-12.0); Neutrophils Absolute Auto 2.7 10^3/uL (1.4-6.5); Platelet Count 164 10^3/uL (150-450); Red Blood Count 4.09 10^6/uL (4.70-6.10); Red Cell Distribution Width 12.8 % (11.0-15.0); White Blood Count 5.9 10^3/uL (4.0-11.0)
--- NOTE | 2024-11-06 11:55 | PM.PRESUREVA ---
History of Present Illness History of Present Illness Chief complaint: ELEVEATED PSA, PROSTATE LESION ON MRI Narrative: Patient presents for presurgical testing. The patient states he had an abnormal prostate exam followed by prostate MRI. He states he has chronic urinary frequency but denies any other urinary symptoms. He had a hernia repair done here at the [facility] in June and states he recovered well. The patient admits that he has developed dyspnea on exertion. He has known aortic stenosis and remains very active with biking and walking but notices shortness of breath with activities. His primary care provider ordered an echocardiogram and the patient is now scheduled with cardiology. Review of Systems ROS Narrative REVIEW OF SYSTEMS: Negative except as stated in HPI, ten or more systems reviewed. Constitutional: No fever, chills, weakness ENT: No sore throat or epistaxis Cardiovascular: No edema, chest pain, or palpitations Respiratory: No cough or wheezing Musculoskeletal: No joint pain or swelling Gastrointestinal: No abdominal pain, constipation, diarrhea, or vomiting Genitourinary: No dysuria or hematuria Neurological: No numbness, tingling, weakness, or headache Psychiatric: No mood changes [facility] Medical History (Updated 11/06/24 @ 11:20 by Ondina Bravo NP) Seasonal allergies ?J30.2 - Other seasonal allergic rhinitis (ICD-10) Dyspnea on exertion (08/19/24) ?R06.09 - Other forms of dyspnea (ICD-10) BPH with obstruction/lower urinary tract symptoms ?N40.1 - Benign prostatic hyperplasia with lower urinary tract symptoms (ICD-10) ?N13.8 - Other obstructive and reflux uropathy (ICD-10) Abnormal prostate exam ?R39.89 - Other symptoms and signs involving the genitourinary system (ICD-10) Elevated PSA ?R97.20 - Elevated prostate specific antigen [PSA] (ICD-10) Rash ?R21 - Rash and other nonspecific skin eruption (ICD-10) Kidney stones ?N20.0 - Calculus of kidney (ICD-10) Heart murmur ?R01.1 - Cardiac murmur, unspecified (ICD-10) Vitamin D deficiency ?E55.9 - Vitamin D deficiency, unspecified (ICD-10) Mood disorder ?F39 - Unspecified mood [affective] disorder (ICD-10) Hypercholesterolemia ?E78.00 - Pure hypercholesterolemia, unspecified (ICD-10) Hyperlipidemia ?E78.5 - Hyperlipidemia, unspecified (ICD-10) Erectile dysfunction ?N52.9 - Male erectile dysfunction, unspecified (ICD-10) Diverticulosis ?K57.90 - Diverticulosis of intestine, part unspecified, without perforation or abscess without bleeding (ICD-10) GERD (gastroesophageal reflux disease) ?K21.9 - Gastro-esophageal reflux disease without esophagitis (ICD-10) BPH (benign prostatic hyperplasia) ?N40.0 - Benign prostatic hyperplasia without lower urinary tract symptoms (ICD-10) Aortic stenosis ?I35.0 - Nonrheumatic aortic (valve) stenosis (ICD-10) Allergic rhinitis ?J30.9 - Allergic rhinitis, unspecified (ICD-10) Left inguinal hernia ?K40.90 - Unilateral inguinal hernia, without obstruction or gangrene, not specified as recurrent (ICD-10) Surgical History (Updated 11/01/24 @ 11:14 by Ondina Bravo NP) H/O inguinal hernia repair (07/10/24) ?Z98.890 - Other specified postprocedural states (ICD-10) ?Z87.19 - Personal history of other diseases of the digestive system (ICD-10) H/O right inguinal hernia repair ?Z98.890 - Other specified postprocedural states (ICD-10) ?Z87.19 - Personal history of other diseases of the digestive system (ICD-10) History of esophagogastroduodenoscopy (EGD) ?Z98.890 - Other specified postprocedural states (ICD-10) H/O colonoscopy ?Z98.890 - Other specified postprocedural states (ICD-10) Family History (Updated 05/22/24 @ 09:28 by Ondina Bravo NP) Other Cancer Family history of breast cancer Family history of myocardial infarction Social History (Updated 05/22/24 @ 09:22 by Ondina Bravo NP) Within the past year, how often did you have a drink containing alcohol: 2-3 times a week Smoking status: Former smoker Non-prescribed substance use: denies use Previous occupational history: Retired [employer], [employer] Highest level of school completed/degree received: high school graduate Meds Home Medications and Allergies Home Medications ?Medication ?Instructions ?Recorded ?Confirmed ?Type alfuzosin 10 mg tablet,extended 10 mg PO DAILY 05/22/24 11/06/24 History release 24 hr ascorbic acid (vitamin C) 1,000 mg 1 g PO DAILY 05/22/24 11/06/24 History capsule atorvastatin 20 mg tablet 20 mg PO DAILY 05/22/24 11/06/24 History cholecalciferol (vitamin D3) 25 1,000 unit PO DAILY 05/22/24 11/06/24 History mcg (1,000 unit) capsule cyanocobalamin (vitamin B-12) 1,000 mcg PO DAILY 05/22/24 11/06/24 History 1,000 mcg capsule fexofenadine 180 mg tablet 180 mg PO DAILY 05/22/24 11/06/24 History multivitamin-ferrous 1 tab PO DAILY 05/22/24 11/06/24 History fumarate-folic acid 18 mg-400 mcg tablet (Centrum Complete) omeprazole 20 mg capsule,delayed 20 mg PO DAILY 05/22/24 11/06/24 History release tadalafil 20 mg tablet 20 mg PO DAILY PRN sexual activity 05/22/24 11/06/24 History Allergies Allergy/AdvReac Type Severity Reaction Status Date / Time No Known Drug Allergies Allergy Verified 11/06/24 11:12 Exam Narrative Exam Narrative: Constitutional: Awake, alert, comfortable, well-appearing, nontoxic, interactive, vital signs as charted Head: Normocephalic, atraumatic Neck: Supple, normal appearance, normal range of motion, no meningeal signs, no lymphadenopathy Respiratory: No respiratory distress, breath sounds clear Cardiovascular: Regular rate and rhythm, prominent systolic murmur noted Abdomen: Nontender, normal bowel sounds, soft, no CVA tenderness Musculoskeletal: Normal gait, no swelling or edema Skin: No rashes or induration, no lesions, only visible skin inspected Neuro: No neurological deficits, normal sensation Psychiatric: Oriented ?3, normal affect Assessment and Plan Assessment and Plan (1) BPH with obstruction/lower urinary tract symptoms: (2) Abnormal prostate exam: (3) Elevated PSA: Plan MRI prostate fusion biopsy scheduled with Dr. Tracy November 19, 2024.
[2024-11-06 11:57] LABS: Anion Gap 10.3; BUN Creatinine Ratio 10.3; Calcium 8.7 mg/dL (8.5-10.1); Chloride 107 mmol/L (98-107); Estimated GFR (African America >60 (>=60 mL/min/1.73m^2); Estimated GFR (Non-African Ame 51 (>=60 mL/min/1.73m^2); Glucose 97 mg/dL (74-106); Potassium 4.3 mmol/L (3.5-5.1); Sodium 142 mmol/L (136-145)
[2024-11-06 12:01] LABS: Partial Thromboplastin Time 25.6 sec (22.3-36.2); Prothrombin Time 10.6 sec (9.0-11.6)
== END 2024-11-06 10:53 | disposition home or self-care (01) ==
LOC: PST 10:52
PROVIDERS: PCP Internal Medicine; Visit Provider Urology
DX: Z01.810 Encounter for preprocedural cardiovascular examination (principal); Z01.812 Encounter for preprocedural laboratory examination; Z01.818 Encounter for other preprocedural examination; R97.20 Elevated prostate specific antigen [PSA]; N42.89 Other specified disorders of prostate
CPT/HCPCS: 80048; 85025; 85610; 85730; 93005; G0463

== ENCOUNTER 2024-11-19 08:44 | Day surgery (SDC) | payer OTHER, MEDICARE, SELFPAY ==
[2024-11-06 11:51] VITALS: BP 128/72; PULSE 86; TEMP 36.3; O2SAT 97; BMI 23.0
[2024-11-19 08:56] VITALS: BP 137/82; PULSE 75; TEMP 36.4; O2SAT 96; BMI 22.9
[2024-11-19] MEDS: LACTATED RINGER'S SOLUTION 1,000 ML 50 ML IV (09:19)
[2024-11-19] MEDS: GENTAMICIN SULFATE 120 MG in 0.9 % SODIUM CHLORIDE 100 ML 206 MG IV (09:20)
[2024-11-19] MEDS: CEFAZOLIN SODIUM 1 GM/50 ML D5W PREMIX IV (09:40)
[2024-11-19] MEDS: LIDOCAINE 2% JELLY 20 ML UR (10:06)
[2024-11-19] MEDS: LIDOCAINE HCL 1% 100 MG/10 ML MDV INJ (10:06)
[2024-11-19 10:29] VITALS: BP 87/56; PULSE 76; TEMP 36.1; O2SAT 95
--- NOTE | 2024-11-19 10:29 | P.URON_ITS ---
Urology Surgery Operative Note Operative Note Procedure Date: 11/19/24 Time Out Performed: yes Pre-op Diagnosis: Elevated PSA and prostate lesion on MRI Post-op Diagnosis: same as pre-op Procedures performed: Prostate MRI fusion biopsies Anesthesia: MAC and local Primary Surgeon: Raoul Tracy Complications: None Estimated blood loss (mL): 10 Findings: My prostatic calcifications Specimens: 5 biopsies from the area of interest. 12 standard mapped out biopsies Indications for Procedures: This gentleman has an elevated PSA of 2.4 and a indurated right side of his prostate. Prostate MRI revealed a PI-RADS 4 lesion on the left side at the mid gland. He now presents for prostate MRI fusion biopsies. He has signed an informed consent after risks were explained. Some of these risks include bleeding, infection, urosepsis and anesthesia to name a few Detailed description of Procedure: The patient was kept on the gurney bed and brought into the operating room. He was rotated in the left lateral decubitus position. Timeout was done by all parties in the room. MAC anesthesia was then administered. The rectum was swabbed with Betadine sponges. I then passed 2% lidocaine gel per rectum. The ultrasound probe from the [employer] system was passed per rectum. We then did segmentation so as to fuse the MRI images on the live ultrasound. We then lined up the MRI lesion and we took 5 biopsies from this lesion and these were sent separately labeled area of interest. We then did our standard mapped out biopsies. We started on the left side and took 6 biopsies. We then took 6 from the right side. These were all sent and labeled accordingly. The probe was then removed. He was then transferred to PACU in stable condition.
[2024-11-19 10:35] VITALS: BP 115/66
[2024-11-19 10:45] VITALS: BP 131/79; PULSE 72; O2SAT 97
[2024-11-19 11:00] VITALS: BP 130/80; PULSE 74; O2SAT 99
--- NOTE | 2024-11-19 11:13 | PC.NURSE ---
1110: pt ambulates to bathroom,voids without difficulty. scant blood in urine,no clots noted.
== END 2024-11-19 11:15 | disposition home or self-care (01) ==
LOC: SURGOUT 08:47
PROVIDERS: PCP Internal Medicine; Visit Provider Urology
PROC: (CPT 902; principal; 2024-11-19 09:45)
DX: R97.20 Elevated prostate specific antigen [PSA] (principal); N40.0 Benign prostatic hyperplasia without lower urinary tract symptoms; N42.9 Disorder of prostate, unspecified; E78.5 Hyperlipidemia, unspecified; K21.9 Gastro-esophageal reflux disease without esophagitis; I35.0 Nonrheumatic aortic (valve) stenosis; F39 Unspecified mood [affective] disorder; Z79.01 Long term (current) use of anticoagulants; N52.9 Male erectile dysfunction, unspecified; Z80.42 Family history of malignant neoplasm of prostate; Z87.891 Personal history of nicotine dependence
CPT/HCPCS: 55700; 36415; J0690; J1100; J1580; J2250; J2371; J2704